=== PATIENT | female | born 1970 | race Two or more races ===

== ENCOUNTER 2017-07-18 06:55 | Day surgery (SDC) | payer BC ==
[~2017-07-18] VITALS: Ht 175.3 cm; Wt 60.3 kg
[2017-07-18] VITALS (15 sets, daily range): BP systolic 85–135; BP diastolic 50–91
[~2017-07-18 06:55] MED LIST: ceFAZolin 1gm in D5W 55ml IVP ONE; oxyCONTIN 20mg tab ORAL ONE
[2017-07-18] MEDS ORDERED: Morphine Sulfate PF 10 ML ONE (07:41)
[2017-07-18] MEDS ORDERED: Kenalog-40 1ml Vial ONE (07:41)
[2017-07-18] MEDS ORDERED: Ketorolac 30mg Inj ONE (07:41)
[2017-07-18] MEDS ORDERED: EPINEPHrine 1mg/1ml Amp ONE (07:42)
[2017-07-18] MEDS ORDERED: Lidocaine 1% 10mg/ml/Epi 0.005mg/ml 30ml vial INJ ONE (07:42)
[2017-07-18] MEDS ORDERED: Bupivacaine 0.25% Inj 30ml INJ ONE (07:42)
[2017-07-18] MEDS ORDERED: CLOTRIMAZOLE15 GM TOPIC (07:53)
[2017-07-18] MEDS ORDERED: Propofol 200mg/20ml IV ONE (08:02)
[2017-07-18] MEDS ORDERED: LR 1000ml 1,000 ML IVLG SCH (08:03)
--- NOTE | 2017-07-18 08:03 | Anethesia Preoperative Eval ---
Anesthesia Pre-op PMH/ROS General Date of Evaluation: Jul 18, 2017 Anesthesiologist: Mukesh ASA Score: ASA 2 Mallampati Score Class I : Soft palate, uvula, fauces, pillars visible Class II: Soft palate, uvula, fauces visible Class III: Soft palate, base of uvula visible Class IV: Only hard plate visible Mallampati Classification: Class II Surgeon: Wenceslao Diagnosis: Left knee meniscal tear Surgical Procedure: Left knee arthrosocpy, medial meniscectomy Anesthesia History: none Family History: no anesthesia problems Allergies: Coded Allergies: AZITHROMYCIN (Verified Allergy, Unknown, 07/17/17) SULFA (SULFONAMIDE ANTIBIOTICS) (Verified Allergy, Unknown, 07/17/17) Medications: see eMAR Past Medical History Cardiovascular: Denies: HTN, CAD, IA, valve dz, arrhythmia, other Pulmonary: Reports: asthma, Denies: COPD, VIVIAN, other Gastrointestinal/Genitourinary: Denies: GERD, CRI, ESRD, other Neurologic/Psychiatric: Denies: dementia, CVA, depression/anxiety, TIA, other Endocrine: Denies: DM, hypothyroidism, steroids, other HEENT: Denies: cataract (L), cataract (R), glaucoma, MODOC (L), MODOC (R), other Hematology/Immune: Denies: anemia, DVT, bleeding disorder, other Musculoskeletal/Integumentary: Denies: OA, RA, DJD, DDD, edema, other PSxH Narrative: denies Anesthesia Pre-op Phys. Exam Physician Exam Last Vital Signs Date Time Temp Pulse Resp B/P (MAP) Pulse Ox O2 Delivery O2 Flow Rate FiO2 07/18/17 07:27 98.6 72 18 117/75 100 Room Air Constitutional: NAD Cardiovascular: RRR Respiratory: CTA Airway Exam Mallampati Score: Class II MO: full ROM: full Teeth: intact Anesthesia Pre-op A/P Labs see chart Urine Test Test 07/18/17 07:10 Urine HCG, Qualitative Negative Studies Pre-op Studies: EKG - sr Risk Assessment & Plan Assessment: ASA II Plan: GA Status Change Before Surgery: No Pre-Antibiotics Drug: Ancef 1g Given Within 1 Hr of Incision: Yes SELVIN TRENT M.D. Jul 18, 2017 08:03
[2017-07-18] MEDS ORDERED: Hydromorphone 0.5mg/0.5ml inj IVP PRN (08:15)
[2017-07-18] MEDS ORDERED: Ketorolac 30mg Inj IV PRN (08:15)
[2017-07-18] MEDS ORDERED: fentaNYL 100 mcg/2 mL IV PRN (08:15)
[2017-07-18] MEDS ORDERED: DiphenhydrAMINE 50mg/ml Inj IVP PRN (08:15)
--- NOTE | 2017-07-18 08:20 | Immediate Post-Op Evaluation ---
Immediate Post-Op Evalulation Immediate Post-Op Evalulation Procedure: Left knee arthroscopy, medial meniscectomy Date of Evaluation: Jul 18, 2017 Time of Evaluation: 09:22 IV Fluids: 600 Blood Products: 0 Estimated Blood Loss: min Urinary Output: 0 Blood Pressure Systolic: 85 Blood Pressure Diastolic: 50 Pulse Rate: 60 Respiratory Rate: 16 O2 Sat by Pulse Oximetry: 98 Temperature (Fahrenheit): 97.3 Pain Score (1-10): 0 Nausea: No Vomiting: No Complications 0 Patient Status: awake, reacts, patent, none Hydration Status: adequate Drug: Ancef 1g Given Within 1 Hr of Incision: Yes Time Given: 08:45 SELVIN TRENT M.D. Jul 18, 2017 08:20
[2017-07-18] MEDS ORDERED: Duramorph PF 10mg/10ml amp IV ONE (08:25)
--- NOTE | 2017-07-18 08:28 | Operative Note - PDOC ---
Operative Note Operative Note Pre-op Diagnosis: left knee medial meniscus tear Procedure: left knee medial menisectomy Post-op Diagnosis: same as pre-op plus Operative Findings: consistent w/pre-op dx studies Anesthesia: MAC Specimen: none Complications: none Condition: stable Implant(s) used?: RIAN Pham Jul 18, 2017 08:28
--- NOTE | 2017-07-18 08:28 | Pre-Procedure Note/Attestation ---
Pre-Procedure Note/Attestation Complete Prior to Procedure Planned Procedure: left Procedure Narrative: knee arthroscopy, medial menisectomy Indications for Procedure Pre-Operative Diagnosis: left knee medial meniscus tear Attestation I attest that I discussed the nature of the procedure; its benefits; risks and complications; and alternatives (and the risks and benefits of such alternatives ), prior to the procedure, with the patient (or the patient's legal wholesale representative). I attest that, if there was a reasonable possibility of needing a blood transfusion, the patient (or the patient's legal wholesale representative) was given the [facility] standardized written summary, pursuant to the [place] Blood Safety Act ([place] Health and Safety Code # 1645, as amended). I attest that I re-evaluated the patient just prior to the surgery and that there has been no change in the patient's H&P, except as documented below: RIAN HARO Jul 18, 2017 08:28
[2017-07-18] MEDS ORDERED: Dexamethasone 4mg/ml vial ONE (08:30)
[2017-07-18] MEDS ORDERED: fentaNYL 100 mcg/2 mL IV ONE (08:30)
[2017-07-18] MEDS ORDERED: Tylenol #3 tab (300mg/30mg) ORAL PRN (08:30)
[2017-07-18] MEDS ORDERED: HYDROmorphone 1mg/ml Carpuject SUBQ PRN (08:30)
[2017-07-18] MEDS ORDERED: NS Irrig 2000ml IRRIG ONE (08:30)
[2017-07-18] MEDS ORDERED: Midazolam 2mg/2ml Inj ONE (08:30)
[2017-07-18] MEDS ORDERED: Lidocaine 1% MPF 10mg/ml 5ml ONE (08:30)
[2017-07-18] MEDS ORDERED: LR 1000ml ONE (08:30)
[2017-07-18] MEDS ORDERED: NS Irrig 1000ml ONE (08:30)
[2017-07-18] MEDS ORDERED: Norco 5mg/325mg tab ORAL PRN (08:30)
--- NOTE | 2017-07-18 08:50 | 48 Hour Post Anesthesia Eval ---
Post Anesthesia Evaluation Procedure: Left knee arthroscopy, medial meniscectomy Date of Evaluation: Jul 18, 2017 Time of Evaluation: 11:20 Blood Pressure Systolic: 124 0: 84 Pulse Rate: 75 Respiratory Rate: 16 Temperature (Fahrenheit): 97.5 O2 Sat by Pulse Oximetry: 98 Airway: patent Nausea: No Vomiting: No Pain Intensity: 0 Hydration Status: adequate Cardiopulmonary Status: at baseline Mental Status/LOC: patient returned to baseline Post-Anesthesia Complications: 0 Follow-up care needed: ready to discharge SELVIN TRENT M.D. Jul 18, 2017 08:50
[2017-07-18] MEDS ORDERED: D5 1/2NS 1,000 ML IV SCH (11:00)
--- NOTE | 2017-07-18 15:00 | Operative Note - Dictated ---
DATE OF OPERATION: 07/18/2017 PREOPERATIVE DIAGNOSIS: Left knee medial meniscus tear. POSTOPERATIVE DIAGNOSES: 1. Left knee medial meniscus tear. 2. Left knee hypertrophic synovial tissue, medial, lateral, and patellofemoral compartments. PROCEDURES: 1. Left knee arthroscopic partial medial meniscectomy. 2. Synovectomy, medial, lateral, and patellofemoral compartments. SURGEON: David Billy M.D. ANESTHESIA: General. INDICATION FOR PROCEDURE: The patient is a pleasant 46-year-old female, who was diagnosed with medial meniscus tear. Continued pain, failed conservative treatment, elected to undergo left knee partial medial meniscectomy. Risks, limitations, expectations, and complications of the procedure were discussed in detail. All questions addressed. DESCRIPTION OF PROCEDURE: An informed consent was obtained. The patient was brought to the operative room. The patient was placed supine under monitored anesthesia control. Tourniquet was applied to left proximal thigh. Left leg was prepped and draped in a sterile manner. Time-out was performed. A 0.25% Marcaine plain was injected into the left knee. Portal sites were injected with 1% lidocaine with epinephrine. Inferolateral stab incision was then made. Trocar was introduced into the knee joint. No significant chondral damage. Medial compartment was entered. Medial compartment showed a tear of the posterior horn of the medial meniscus. Medial working portal was established. Partial meniscectomy using a shaver was performed down to stable rim of meniscal tissue. Synovectomy of the anterior compartment, medial compartment was completed along the intercondylar notch of the lateral compartment. ACL was probed, noted to be intact. Lateral compartment was entered, free of any meniscal chondral damage. Camera was repositioned in the patellofemoral compartment. Synovectomy was completed. The instruments were removed. Portal sites were closed using 3-0 Monocryl sutures. Steri-Strips and a sterile dressing were applied. The patient was awoken and taken to recovery room with stable vital signs. ESTIMATED BLOOD LOSS: None. COMPLICATIONS: None. SPECIMENS: None. David Billy M.D. DR: JONNA JOB#: [id number] CC:
== END 2017-07-18 12:10 | disposition home or self-care (01) ==
LOC: SUR 06:55
DX: S83.242A Other tear of medial meniscus, current injury, left knee, initial encounter (principal); M67.262 Synovial hypertrophy, not elsewhere classified, left lower leg; Z88.2 Allergy status to sulfonamides; X58.XXXA Exposure to other specified factors, initial encounter; Y93.9 Activity, unspecified; Y92.9 Unspecified place or not applicable
CPT/HCPCS: 29876; 29881; 81025; J0171; J0690; J1100; J1885; J2250; J2274; J2405; J2704; J3010; J3301; J3490; J7120; 94003; 94150